=== PATIENT | male | born 1995 | race Caucasian/White ===

== ENCOUNTER 2017-05-18 21:52 | Emergency (ER) | payer OTHER ==
[~2017-05-18] VITALS: Ht 200.7 cm; Wt 68.0 kg
[~2017-05-18 21:52] MED LIST: Naprosyn500 MG PO; Veetids 500500 MG PO
[2017-05-18] MEDS ORDERED: TYLENOL AND MOTRIN (22:04)
[2017-05-18] MEDS ORDERED: TYLECOD3 PO (23:26)
[2017-05-18] MEDS ORDERED: Amoxicillin875 MG PO (23:26)
[2017-09-17] MEDS ORDERED: Prednisone50 MG PO (21:47)
[2017-09-17] MEDS ORDERED: Permethrin60 GM TOP (21:47)
== END 2017-05-18 23:25 | disposition home or self-care (01) ==
LOC: ER 21:52
DX: K02.9 Dental caries, unspecified (principal); F17.200 Nicotine dependence, unspecified, uncomplicated; Z79.899 Other long term (current) drug therapy
CPT/HCPCS: 64400; 93005; 93010; 99283

== ENCOUNTER 2018-08-10 14:39 | Emergency (ER) | payer OTHER ==
[~2018-08-10] VITALS: Ht 193 cm; Wt 68.0 kg
[~2018-08-10 14:39] MED LIST changes: +Amoxicillin875 MG PO; +Permethrin60 GM TOP; +Prednisone50 MG PO; +TYLECOD3 PO; +TYLENOL AND MOTRIN
[2018-08-10] MEDS ORDERED: Veetids 500500 MG PO (15:22)
== END 2018-08-10 15:37 | disposition home or self-care (01) ==
LOC: ER 14:39
DX: K04.7 Periapical abscess without sinus (principal); F17.210 Nicotine dependence, cigarettes, uncomplicated
CPT/HCPCS: 99282

== ENCOUNTER 2021-08-07 11:57 | Emergency (ER) | payer OTHER ==
[~2021-08-07] VITALS: Ht 193 cm; Wt 68.0 kg
== END 2021-08-07 15:55 | disposition home or self-care (01) ==
LOC: ER 11:57
DX: R07.89 Other chest pain (principal); Z91.041 Radiographic dye allergy status; F17.210 Nicotine dependence, cigarettes, uncomplicated
CPT/HCPCS: 71046; 93005; 93010; 99284-25

== ENCOUNTER → 2022-02-12 | Outpatient (CLI) | payer OTHER | END | disposition home or self-care (01) | LOC: LAB 08:19 → LAB SHORT 08:19 | DX: D22.5 Melanocytic nevi of trunk (principal); D23.61 Other benign neoplasm of skin of right upper limb, including shoulder | CPT/HCPCS: 88305 ==

== ENCOUNTER 2022-12-27 23:17 | Emergency (ER) | payer OTHER ==
[~2022-12-27] VITALS: Ht 193 cm; Wt 65.8 kg
[2022-12-28 02:37] VITALS: BP 111/49
== END 2022-12-28 03:08 | disposition home or self-care (01) ==
LOC: ER 23:17
DX: S60.221A Contusion of right hand, initial encounter (principal); F17.210 Nicotine dependence, cigarettes, uncomplicated; W22.8XXA Striking against or struck by other objects, initial encounter; Z91.041 Radiographic dye allergy status
CPT/HCPCS: 73130; 99283-25

== ENCOUNTER → 2024-07-02 | Outpatient (CLI) | payer OTHER | END | disposition home or self-care (01) | LOC: LAB SHORT 14:03 → LAB 14:03 | DX: R31.9 Hematuria, unspecified (principal) | CPT/HCPCS: 87086 ==

== ENCOUNTER 2024-08-19 05:56 | Emergency (ER) | payer OTHER ==
[~2024-08-19] VITALS: Ht 193 cm; Wt 72.6 kg
[2024-08-19] MEDS ORDERED: Ketorolac Tromethamine 30mg Vial IV ONE ×2 (06:15→10:25)
[2024-08-19 06:39] LABS: BASOPHILS ABSOLUTE AUTO 0.04 K/mm3 (0.00-0.23); BASOPHILS PERCENT AUTO 1 % (0-2); EOSINOPHILS ABSOLUTE AUTO 0.19 K/mm3 (0.00-0.68); EOSINOPHILS PERCENT AUTO 2 % (0-6); Hematocrit 45.6 % (37.0-53.0); Hemoglobin 15.4 g/dL (13.5-17.5); IMMATURE GRAN ABSOLUTE AUTO 0.04 K/mm3 (0.00-0.10); IMMATURE GRAN PERCENT AUTO 1 % (0-1); LYMPHOCYTES ABSOLUTE AUTO 2.31 K/mm3 (0.84-5.20); LYMPHOCYTES PERCENT AUTO 27 % (21-46); MONOCYTES ABSOLUTE AUTO 0.67 K/mm3 (0.16-1.47); MONOCYTES PERCENT AUTO 8 % (4-13); Mean Corpuscular HGB 29.2 pg (26.0-34.0); Mean Corpuscular HGB Conc 33.8 g/dL (31.5-36.5); Mean Corpuscular Volume 87 fL (80-100); Mean Platelet Volume 9.7 fL (9.1-12.4); NEUTROPHILS ABSOLUTE AUTO 5.38 K/mm3 (1.96-9.15); NEUTROPHILS PERCENT AUTO 62 % (41-73); Platelet Count 228 K/mm3 (150-400); RDW Coefficient Variation 12.4 % (11.7-14.2); RDW Standard Deviation 39.1 fL (35.1-46.3); Red Blood Cell Count 5.27 M/mm3 (4.30-5.90); White Blood Cell Count 8.63 K/mm3 (4.00-11.30)
[2024-08-19 06:58] LABS: Source, Urine Clean Catch
[2024-08-19 07:04] LABS: Albumin/Globulin Ratio 1.4 (0.8-1.8); Bilirubin, Total 1.8 mg/dL (0.1-1.0); Bun/Creatinine Ratio 20.3 (12.0-20.0); Calcium, Blood 8.9 mg/dL (8.5-10.1); Creatinine, Blood 0.94 mg/dL (0.60-1.20); Globulin, Blood 2.8 g/dL (2.2-4.0); Potassium, Blood 3.6 mmol/L (3.5-5.5); Total Protein, Blood 6.8 g/dL (6.4-8.2)
[2024-08-19 07:20] LABS: Appearance, Urine Hazy (Clear); Bilirubin, Urine Neg (Neg); Blood, Urine 5+ (Neg); Color, Urine Yellow (P-Yellow); Glucose Qualitative, Urine Neg (Neg); Ketones, Urine Neg (Neg); Leukocyte Esterase, Urine Neg (Neg); Nitrite, Urine Neg (Neg); Protein, Urine 2+ (Neg); Urobilinogen, Urine NORM (Normal)
[2024-08-19 07:40] LABS: Calcium Oxalate Crystals Few /hpf
[2024-08-19 07:41] LABS: White Blood Cells, Urine 0-2 /hpf (0-5)
[2024-08-19 07:42] LABS: Squamous Epithelial Cells Not Seen /hpf (Few)
[2024-08-19 07:43] LABS: Bacteria Rare /hpf; Mucus Mod (0-Heavy)
[2024-08-19] MEDS ORDERED: Morphine Sulfate 4 MG/1 ML Injection IV ONE (09:05)
[2024-08-19] MEDS ORDERED: ONDA4ODT MM (09:41)
[2024-08-19] MEDS ORDERED: HYDR1TAB94 PO (09:48)
[2024-08-19] MEDS ORDERED: Ondansetron HCl 2 MG / ML 2ML Vial IV ONE (09:50)
[2024-08-19] MEDS ORDERED: HYDROmorphone HCl/Pf 1MG SYR IV ONE ×2 (09:50→10:25)
[2024-08-19 11:30] VITALS: BP 126/77
[2024-08-19] MEDS ORDERED: IBUP600 PO (11:37)
== END 2024-08-19 11:48 | disposition home or self-care (01) ==
LOC: ER 05:56
PROVIDERS: Student in an Organized Health Care Education/Training Program
DX: N13.2 Hydronephrosis with renal and ureteral calculous obstruction (principal); F17.210 Nicotine dependence, cigarettes, uncomplicated
CPT/HCPCS: 76770; 80053; 81001; 83735; 85025; 96374; 96375; 96376; 99284-25; J1171; J1885; J2270; J2405

== ENCOUNTER 2025-01-23 18:11 | Emergency (ER) | payer OTHER ==
[~2025-01-23] VITALS: Ht 193 cm; Wt 72.6 kg
[~2025-01-23 18:11] MED LIST changes: +HYDR1TAB94 PO; +IBUP600 PO; +ONDA4ODT MM
[2025-01-23] MEDS ORDERED: Ketorolac Tromethamine 15mg Vial IV ONE ×2 (18:40→20:45)
[2025-01-23 18:56] LABS: BASOPHILS ABSOLUTE AUTO 0.03 K/mm3 (0.00-0.23); BASOPHILS PERCENT AUTO 0 % (0-2); EOSINOPHILS ABSOLUTE AUTO 0.08 K/mm3 (0.00-0.68); EOSINOPHILS PERCENT AUTO 1 % (0-6); Hematocrit 43.5 % (37.0-53.0); Hemoglobin 15.1 g/dL (13.5-17.5); IMMATURE GRAN ABSOLUTE AUTO 0.02 K/mm3 (0.00-0.10); IMMATURE GRAN PERCENT AUTO 0 % (0-1); LYMPHOCYTES ABSOLUTE AUTO 2.11 K/mm3 (0.84-5.20); LYMPHOCYTES PERCENT AUTO 22 % (21-46); MONOCYTES ABSOLUTE AUTO 0.63 K/mm3 (0.16-1.47); MONOCYTES PERCENT AUTO 7 % (4-13); Mean Corpuscular HGB Conc 34.7 g/dL (31.5-36.5); Mean Corpuscular Volume 86 fL (80-100); NEUTROPHILS ABSOLUTE AUTO 6.75 K/mm3 (1.96-9.15); NEUTROPHILS PERCENT AUTO 70 % (41-73); NRBC ABSOLUTE 0.00 K/mm3 (0.00-0.02); NRBC Auto 0.0 /100 WBC (0.0-0.2); Platelet Count 269 K/mm3 (150-400); RDW Coefficient Variation 12.7 % (11.7-14.2); RDW Standard Deviation 39.3 fL (35.1-46.3)
[2025-01-23 19:39] LABS: Alanine Aminotransfer (ALT/SGP 19.0 U/L (12-78); Albumin, Blood 4.2 g/dL (3.4-5.0); Albumin/Globulin Ratio 1.4 (0.8-1.8); Anion Gap 9.0 mmol/L (3-11); Aspartate Aminotrans (AST/SGOT 15.0 U/L (12-37); Bilirubin, Total 2.2 mg/dL (0.1-1.0); Blood Urea Nitrogen 14.0 mg/dL (8-24); CO2, Blood 25.0 mmol/L (21-32); Calcium, Blood 9.1 mg/dL (8.5-10.1); Chloride, Blood 105.0 mmol/L (98-108); Creatinine, Blood 0.93 mg/dL (0.60-1.20); Globulin, Blood 2.9 g/dL (2.2-4.0); Glucose, Blood 154.0 mg/dL (70-99); Potassium, Blood 3.7 mmol/L (3.5-5.5); Sodium, Blood 135.0 mmol/L (136-145); Total Protein, Blood 7.1 g/dL (6.4-8.2)
[2025-01-23 20:01] LABS: Source, Urine Clean Catch
[2025-01-23 20:03] LABS: Bilirubin, Urine Neg (Neg); Glucose Qualitative, Urine Neg (Neg); Ketones, Urine 2+ (Neg); Leukocyte Esterase, Urine 1+ (Neg); Protein, Urine 1+ (Neg); Specific Gravity, Urine 1.025 (1.003-1.022); Urobilinogen, Urine 1+ (Normal)
[2025-01-23 20:14] LABS: Color, Urine Yellow (P-Yellow)
[2025-01-23 20:15] LABS: Red Blood Cells, Urine 25-50 /hpf (0-2)
[2025-01-23 20:35] VITALS: BP 118/105
[2025-01-23] MEDS ORDERED: CefTRIAXone Sodium 1,000 MG in NS 100 ML IV ONE (20:35)
[2025-01-23] MEDS ORDERED: CEFD300 PO (20:36)
[2025-01-23] MEDS ORDERED: IBU600 MG PO (20:36)
== END 2025-01-23 20:52 | disposition home or self-care (01) ==
LOC: ER 18:11
PROVIDERS: Student in an Organized Health Care Education/Training Program
DX: R31.9 Hematuria, unspecified (principal); N20.0 Calculus of kidney; F17.210 Nicotine dependence, cigarettes, uncomplicated; Z91.041 Radiographic dye allergy status
CPT/HCPCS: 76770; 80053; 81001; 85025; 87086; 96374; 96375; 96376; 99284-25; J0696; J1885

== ENCOUNTER 2025-01-27 22:57 | Emergency (ER) | payer OTHER ==
[~2025-01-27] VITALS: Ht 185.4 cm; Wt 79.4 kg
[~2025-01-27 22:57] MED LIST changes: +CEFD300 PO; +IBU600 MG PO
[2025-01-27] MEDS ORDERED: Ketorolac Tromethamine 30mg Vial IV ONE (23:15)
[2025-01-27] MEDS ORDERED: Ondansetron HCl 2 MG / ML 2ML Vial IV ONE (23:15)
[2025-01-27 23:35] LABS: BASOPHILS ABSOLUTE AUTO 0.03 K/mm3 (0.00-0.23); BASOPHILS PERCENT AUTO 0 % (0-2); EOSINOPHILS ABSOLUTE AUTO 0.01 K/mm3 (0.00-0.68); EOSINOPHILS PERCENT AUTO 0 % (0-6); Hematocrit 43.7 % (37.0-53.0); Hemoglobin 15.2 g/dL (13.5-17.5); IMMATURE GRAN ABSOLUTE AUTO 0.04 K/mm3 (0.00-0.10); IMMATURE GRAN PERCENT AUTO 0 % (0-1); LYMPHOCYTES ABSOLUTE AUTO 1.86 K/mm3 (0.84-5.20); LYMPHOCYTES PERCENT AUTO 16 % (21-46); MONOCYTES ABSOLUTE AUTO 0.73 K/mm3 (0.16-1.47); MONOCYTES PERCENT AUTO 6 % (4-13); Mean Corpuscular HGB Conc 34.8 g/dL (31.5-36.5); Mean Corpuscular Volume 85 fL (80-100); NEUTROPHILS ABSOLUTE AUTO 9.06 K/mm3 (1.96-9.15); NEUTROPHILS PERCENT AUTO 77 % (41-73); NRBC ABSOLUTE 0.00 K/mm3 (0.00-0.02); NRBC Auto 0.0 /100 WBC (0.0-0.2); Platelet Count 309 K/mm3 (150-400); RDW Coefficient Variation 13.0 % (11.7-14.2); RDW Standard Deviation 40.2 fL (35.1-46.3)
[2025-01-27 23:56] LABS: Alanine Aminotransfer (ALT/SGP 22.0 U/L (12-78); Albumin, Blood 4.8 g/dL (3.4-5.0); Albumin/Globulin Ratio 1.7 (0.8-1.8); Anion Gap 12.0 mmol/L (3-11); Aspartate Aminotrans (AST/SGOT 15.0 U/L (12-37); Bilirubin, Total 1.9 mg/dL (0.1-1.0); Blood Urea Nitrogen 12.0 mg/dL (8-24); CO2, Blood 25.0 mmol/L (21-32); Calcium, Blood 9.8 mg/dL (8.5-10.1); Chloride, Blood 105.0 mmol/L (98-108); Creatinine, Blood 1.19 mg/dL (0.60-1.20); Globulin, Blood 2.8 g/dL (2.2-4.0); Glucose, Blood 121.0 mg/dL (70-99); Potassium, Blood 3.8 mmol/L (3.5-5.5); Sodium, Blood 138.0 mmol/L (136-145); Total Protein, Blood 7.6 g/dL (6.4-8.2)
[2025-01-28] MEDS ORDERED: FentaNYL Citrate 50 MCG/ML 2 ML Injection IV ONE (01:20)
[2025-01-28] MEDS ORDERED: NS 1,000 ML IV SCH (01:30)
[2025-01-28] MEDS ORDERED: Ondansetron HCl 2 MG / ML 2ML Vial IV ONE (01:40)
[2025-01-28 02:22] LABS: Source, Urine Clean Catch
[2025-01-28 02:36] LABS: Glucose Qualitative, Urine Neg (Neg); Ketones, Urine 4+ (Neg); Leukocyte Esterase, Urine 1+ (Neg); Protein, Urine 2+ (Neg); Specific Gravity, Urine 1.025 (1.003-1.022); Urobilinogen, Urine 1+ (Normal)
[2025-01-28 02:43] LABS: Bilirubin, Urine 1+ (Neg); Color, Urine Amber (P-Yellow)
[2025-01-28 02:44] LABS: Red Blood Cells, Urine 50-100 /hpf (0-2)
[2025-01-28 03:30] VITALS: BP 127/69
== END 2025-01-28 04:16 | disposition left against medical advice (07) ==
LOC: ER 22:57
PROVIDERS: Student in an Organized Health Care Education/Training Program
DX: R10.9 Unspecified abdominal pain (principal); F17.210 Nicotine dependence, cigarettes, uncomplicated; Z91.041 Radiographic dye allergy status
CPT/HCPCS: 74176; 76770; 80053; 81001; 83690; 85025; 87086; 96374; 96375; 99284-25; J1885; J2405; J3010; J7030